=== PATIENT | male | born 1945 | race Caucasian/White ===

== ENCOUNTER 2019-10-14 20:37 | Emergency (ER) | payer MEDICARE, SELFPAY ==
--- NOTE | ~2019-10-14 | XR_ITS ---
EXAMINATION: XR chest 2V DATE: 10/14/2019 21:20 INDICATION: Shortness of breath, history of COPD TECHNIQUE: AP and lateral views of the chest are obtained. COMPARISON: None available FINDINGS: The lungs are free of acute opacities. There is no pleural effusion or pneumothorax. 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 The heart size is normal. A triple lead pacemaker of the right chest wall ends with its lead s in expected positions. There is mild thoracic spondylosis. IMPRESSION: 1. No acute cardiopulmonary abnormality. Reviewed, dictated and finalized at location A.
--- NOTE | 2019-10-14 20:43 | ECG_ITS ---
Measurements Intervals [place] Rate: 72 P: GA: 0 QRS: -78 QRSD: 141 T: 95 QT: 416 QTc: 455 Interpretive Statements ELECTRONIC VENTRICULAR PACEMAKER BASELINE ARTIFACT- I, II, III, AVR, AVL, AVF, V1 NO FURTHER INTERPRETATION IS POSSIBLE ATYPICAL ECG Electronically Signed On 10-15-2019 7:01:23 CDT by Nikolai Lazo D.O.
--- NOTE | 2019-10-14 20:44 | ED.SOB ---
HPI - SOB/Dyspnea General Chief Complaint: Shortness of Breath/Dyspnea Stated Complaint: sob Time Seen by Provider: 10/14/19 20:42 History of Present Illness HPI Narrative: 74 yo male w/ h/o COPD, a-fib BIBEMS for SOB. He reports that he has severe COPD on 2L O2 at all times and CPAP at night. Even at baseline he has dyspnea on exertion, but this has been more severe for the past few days. tonight prior to going to bed he became very short of breath. He tried using his CPAR without relief. EMS placed him on CPAP and gave him a nebulizer treatment. On arrival to the ED he is much improved. He denies CP, fever. Related Data Allergies Allergy/AdvReac Type Severity Reaction Status Date / Time No Known Allergies Allergy Verified 10/14/19 23:12 Review of Systems Review of Systems: All systems reviewed & are unremarkable except as noted in HPI and below Constitutional: Constitutional: Denies chills, Denies fever(s) and Denies weakness ENT: Denies sore throat Cardiovascular: Cardiovascular: Denies chest pain Respiratory: Respiratory: Denies cough and Reports dyspnea Gastrointestinal: Gastrointestinal: Denies abdominal pain Neurologic: Denies dizziness and Denies weakness PMFSH Past Medical History Medical History (Updated 10/15/19 @ 03:12 by Marcus Ramey MD) Atrial fibrillation COPD (chronic obstructive pulmonary disease) Social History Social History (Updated 10/15/19 @ 03:13 by Marcus Ramey MD) Smoking status: Former smoker Gender identity (if verbalized by the patient): Male Exam Const: General: alert Nutritional Appearance: well nourished Orientation/consciousness: patient oriented x3 Other: Mild distress HENMT: Head: normal to inspection Resp: Effort & Inspection: labored and tachypneic Auscultation: wheezes Cardio: Rate: regular rate Rhythm: regular rhythm GI: GI Palp: Yes Soft to palpation and No Tenderness to palpation present (GI) Skin: General skin exam: normal color Neuro: General: patient oriented x3, no focal motor deficits and CN's II-XI intact bilaterally Extrem: General: no edema Course Vital Signs Vital signs: Vital Signs Temperature 36.6 C 10/14/19 20:46 Pulse Rate 76 10/14/19 20:46 Respiratory Rate 22 H 10/14/19 20:46 Blood Pressure 160/111 H 10/14/19 20:46 Pulse Oximetry 97 10/14/19 20:46 Temperature 36.6 C 10/14/19 20:46 Pulse Rate 66 10/14/19 23:35 Respiratory Rate 30 H 10/14/19 23:35 Blood Pressure 172/76 H 10/14/19 23:35 Pulse Oximetry 96 10/15/19 01:18 MDM - SOB/Dyspnea MDM Narrative Medical decision making narrative: Offered admission for COPD exacerbation. He said that he would prefer to try going home and will return if symptoms get worse. No sign of pneumonia on x-ray. I will start him on a prednisone burst. Differential Diagnosis Differential diagnosis: Likely acute exacerbation of chronic obstructive airways disease, congestive heart failure, community acquired pneumonia and other (COVID) Medical Records Attestation: I reviewed the patient's medical records. Lab Data Attestation: I reviewed the patient's lab results. Result diagrams: 10/14/19 21:00 10/14/19 21:00 Labs: Lab Results 10/14/19 10/14/19 10/14/19 Range/Units 21:00 21:00 21:00 WBC 8.0 (4.5-10.0) K/mm3 RBC 4.27 L (4.6-6.20) M/mm3 Hgb 12.8 L (14.0-18.0) g/dL Hct 40.0 L (42.0-52.0) % MCV 93.7 (80-100) fl MCH 30.0 (26-34) pg MCHC 32.0 (32-36) g/dl RDW 13.4 (11.5-14.5) % Plt Count 174 (150-375) k/mm3 MPV 10.7 H (7.4-10.4) fl Immature Gran % (Auto) 0.6 H (0-0.5) % Neut % (Auto) 67.7 (45.5-73.1) % Lymph % (Auto) 18.3 (18.3-44.2) % [place] % (Auto) 10.5 H (2.6-8.5) % Eos % (Auto) 2.4 (0-4.4) % Baso % (Auto) 0.5 (0.2-1.2) % Lymph # (Auto) 1.47 (0.9-3.2) K/mm3 [place] # (Auto) 0.8 H (0.1-0.6) K/mm3 Eos # (Auto) 0.2 (0-0.3) K/mm3
[2019-10-14 20:46] VITALS: BP 160/111; PULSE 76; RESP 22; TEMP 36.6; O2SAT 97
[2019-10-14] MEDS: methylPREDNISolone SOD SUCC 125 MG VIAL IV PUSH (21:00)
[2019-10-14 21:07] LABS: Basophils Percent Auto 0.5 % (0.2-1.2); Eosinophils Absolute Auto 0.2 K/mm3 (0-0.3); Eosinophils Percent Auto 2.4 % (0-4.4); Hemoglobin 12.8 g/dL (14.0-18.0); Immature Granulocyte Absolute 0.05 K/mm3 (0.00-0.031); Immature Granulocyte Percent A 0.6 % (0-0.5); Lymphocytes Absolute Auto 1.47 K/mm3 (0.9-3.2); Lymphocytes Percent Auto 18.3 % (18.3-44.2); Mean Corpuscular Volume 93.7 fl (80-100); Mean Platelet Volume 10.7 fl (7.4-10.4); Monocytes Absolute Auto 0.8 K/mm3 (0.1-0.6); Monocytes Percent Auto 10.5 % (2.6-8.5); Neutrophils Absolute Auto 5.4 K/mm3 (1.3-6.7); Neutrophils Percent Auto 67.7 % (45.5-73.1); Platelet Count Result 174 k/mm3 (150-375); Red Blood Count 4.27 M/mm3 (4.6-6.20); Red Cell Distribution Width 13.4 % (11.5-14.5)
[2019-10-14 21:19] LABS: Blood Urea Nitrogen 30 mg/dL (9-20); Calcium 9.1 mg/dL (8.4-10.2); Carbon Dioxide 29 mmol/L (22-30); Chloride 106 mmol/L (98-107); Estimated CRCL calculation 65 ml/min; Estimated Glomerular Filt Rate > 60; Glucose 143 mg/dL (75-110); Potassium 4.6 mmol/L (3.4-5.0); Sodium 141 mmol/L (137-145)
[2019-10-14 21:23] LABS: Prothrombin Time 21.8 Seconds (11.1-14.7)
[2019-10-14 21:24] LABS: Partial Thromboplastin Time 51.9 SECONDS (22.3-36.8)
[2019-10-14 21:31] LABS: NT Pro B Type Natriuretic Pept 707 PG/ML (5-100); Troponin I 0.019 ng/mL (0.000-0.034)
[2019-10-14 23:35] VITALS: BP 172/76; PULSE 66; RESP 30; O2SAT 98
[2019-10-14 23:52] VITALS: O2SAT 93
--- NOTE | 2019-10-14 23:53 | PC.NURSE ---
Pt became S.O.B while switching to home oxygen tank and getting dressed. notified Pt states he is unsure if he now wants to go home.
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
[2019-10-15] MEDS: ALBUTEROL SULFATE (*SP) AEROSOL 1 PUFF 2 PUFF INHALATION (00:21)
[2019-10-15 01:18] VITALS: O2SAT 96
== END 2019-10-15 01:35 | disposition home or self-care (01) ==
PROVIDERS: Emergency Provider Emergency Medicine
DX: J44.1 Chronic obstructive pulmonary disease with (acute) exacerbation (principal); I48.91 Unspecified atrial fibrillation; Z87.891 Personal history of nicotine dependence; Z95.0 Presence of cardiac pacemaker; R94.31 Abnormal electrocardiogram [ECG] [EKG]
CPT/HCPCS: 36415; 71046; 80048; 83880; 84484; 85025; 85610; 85730; 93005; 96374; 99284; A9270; J2930

== ENCOUNTER 2019-11-17 20:19 | Emergency (ER) | payer MEDICARE, SELFPAY ==
--- NOTE | 2019-11-17 20:32 | PC.NURSE ---
CODE CALLED AT THIS TIME. TIME OF 2031. EDP MILLY PRESENT AT THIS TIME.
--- NOTE | 2019-11-17 20:33 | ED_ITS ---
HPI - CPR General Chief Complaint: Cardiac Arrest/CPR Stated Complaint: CARDIAC ARREST History of Present Illness HPI narrative: Found down at home. Un responsive in respiratory distress with vomitus in his mouth. When EMS arrived they found him pulseless in v-fib. CPR was started. 2 shocks and epi x3 were given. He was converted to PEA and continued to have no pulse. Related Data Allergies Allergy/AdvReac Type Severity Reaction Status Date / Time No Known Allergies Allergy Verified 10/14/19 23:12 Review of Systems Review of Systems: ROS unobtainable: Yes unobtainable due to medical condition [facility] Past Medical History Medical History Atrial fibrillation COPD (chronic obstructive pulmonary disease) Social History Social History (Updated 10/15/19 @ 03:13 by Marcus Ramey MD) Smoking status: Former smoker Gender identity (if verbalized by the patient): Male Exam Const: Other: severe distress, unresponsive HENMT: Other: ET tube in good position Eyes: Other: pupils fixed Resp: Other: Bilateral breath sounds with bagging Cardio: Other: pulseless GI: Other: soft Skin: Other: cool Course Course Emergency Course: CPR continued. Multiple doses of epi and bicarb given. Continued PEA. No pulses regained. No significant wall motion seen on US. Critical Care Time Critical Care Time Critical Care Time: Yes Total Critical Care Time: 30 Discharge Plan Discharge Clinical Impression: Cardiac arrest Patient Disposition: Condition: Prescriptions: No Action prednisone 20 mg tablet 60 mg PO DAILY 4 Days Qty: 12 RF: 0 Interventions: Discharge Disposition Last Done: 11/17/19 22:02 IV Stop Time Documented Last Done: 11/17/19 22:02 Follow-up/Referrals: UNKNOWN,DOCTOR [Primary Care Provider] - Discharge Date/Time: 11/17/19 22:04
== END 2019-11-17 22:04 | disposition expired ==
PROVIDERS: Emergency Provider Emergency Medicine
DX: I46.9 Cardiac arrest, cause unspecified (principal); I48.91 Unspecified atrial fibrillation; J44.9 Chronic obstructive pulmonary disease, unspecified; Z87.891 Personal history of nicotine dependence
CPT/HCPCS: 92950; 99285; J0171; J7030; J7120